=== PATIENT | female | born 1960 | race Caucasian/White ===

== ENCOUNTER 2023-12-19 15:44 | Outpatient (CLI) | payer OTHER, SELFPAY ==
--- NOTE | 2023-12-19 15:54 | XR_ITS ---
WS: [id number] Left hip, 2 views, 12/19/2023 Clinical Data: PAIN IN LEFT HIP Comparison: None. Findings: No fractures or dislocations are seen. The left hip shows no erosion, sclerosis, narrowing or fragmen tation of the left femoral head. The soft tissues are not remarkable. The adjacent pelvis is normal. Impression: Negative left hip. Tonnis classification: grade 0: normal radiographs
== END 2023-12-19 15:45 | disposition home or self-care (01) ==
LOC: RAD 15:51
PROVIDERS: Visit Provider Family Medicine
DX: M25.552 Pain in left hip (principal)
CPT/HCPCS: 73502

== ENCOUNTER 2024-01-04 09:43 | Outpatient (CLI) | payer OTHER, SELFPAY ==
--- NOTE | 2024-01-04 09:47 | MM_ITS ---
WS: [id number] SCREENING DIGITAL TOMOSYNTHESIS MAMMOGRAM WITH CAD HISTORY: SCREENING COMPARISON: 03/29/2022 and 07/12/2020 Bilateral CC and MLO with tomosynthesis views submitted. Synthetic mammography reviewed. Computer aid ed detection analyzed. Breast composition: There are scattered areas of fibroglandular density. No suspicious masses, microc alcifications or architectural distortion. IMPRESSION: MM/[place] [id number] BI-RADS: 1-Negative FOLLOW UP: 1 Year Follow-up
--- NOTE | 2024-01-04 09:51 | CT_ITS ---
WS: [id number] LDCT LUNG CANCER SCREENING TECHNIQUE: Noncontrast CT of the chest with coronal and sagittal reformatted images. CLINICAL INFORMATION: HX OF TOBACCO USE COMPARISON: None. DLP: 54.01 mGy.cm DIvol: Mean CTDIvol: 1.10 (mGy) All CT scans at [facility] use at least one of these dose optimization techniques: automat ed exposure control; mA and/or kV adjustment per patient size (includes targeted exams where dose is matched to clinical indication); or iterative reconstruction. FINDINGS: Lungs are well aerated. No suspicious pulmonary parenchymal opacities. Tiny noncalcified no dule LEFT upper lobe anteriorly Normal caliber thoracic aorta. No mediastinal or hilar lymphadenopathy. No axillary lymphadenopathy. Adrenal glands are normal. Small esophageal hiatal hernia. Marked enlargement LEFT thyroid with LEFT thyroid nodule measuring approximately 3.5 x 2.9 cm. Recommend further evaluation with ultrasound. Mi ld LEFT RIGHT mass effect on the trachea. No significant narrowing. Low-attenuation lesion in the RIGHT hepatic lobe indeterminate on this noncontrast examination. Recom mend further evaluation with contrast-enhanced CT abdomen pelvis. This measures approximately 1.4 cm and may represent hepatic cyst or hemangioma but indeterminant. IMPRESSION: Nonspecific low-attenuation lesion RIGHT hepatic lobe recommend further evaluation contra st-enhanced CT abdomen pelvis with liver protocol. Marked enlargement of the LEFT thyroid. Recommend further evaluation with thyroid ultrasound. CT/CT lung screening [id number] LUNG-RADS: 1S-Negative with Significant Findings FOLLOW UP: 12 Month: Continue annual screening with LDCT
== END 2024-01-04 09:44 | disposition home or self-care (01) ==
LOC: RAD 09:43
PROVIDERS: PCP Family Medicine; Visit Provider Family Medicine
DX: Z12.31 Encounter for screening mammogram for malignant neoplasm of breast (principal); R92.323 Mammographic fibroglandular density, bilateral breasts; Z12.2 Encounter for screening for malignant neoplasm of respiratory organs; Z87.891 Personal history of nicotine dependence
CPT/HCPCS: 71271; 77063; 77067

== ENCOUNTER 2024-01-22 12:58 | Outpatient (CLI) | payer OTHER, SELFPAY ==
--- NOTE | 2024-01-22 13:07 | US_ITS ---
WS: [id number] THYROID ULTRASOUND HISTORY: ENLARGED THYROID COMPARISON: None available. Right lobe: 1.1 cm x 1.1 cm x 4.0 cm (w x ap x l). Volume: 2.4 cm3. Normal sized thyroid. Colloid cyst mid gland 0.3 x 0.4 x 0.4 cm. Left lobe: 3.2 cm x 2.6 cm x 5.1 cm (w x ap x l). Volume: 20.6 cm3. Enlarged thyroid. There is a large dominant cystic and solid nodule with increased vascularity center ed in the mid gland. Mass measures 2.2 x 3.2 x 4.5 cm. As per history this mass is undergone biopsy t wice in the past. This is a well-circumscribed mass. No echogenic foci. Isthmus: 0.3 cm. IMPRESSION: 1. Large complex cystic mass LEFT thyroid measures 2.2 x 3.2 x 4.4 cm. As per the patient this mass is undergone biopsy twice in the past. No prior studies available for comparison to evaluate for inte rval change. 2. Small colloid cyst RIGHT thyroid.
--- NOTE | 2024-01-22 13:07 | CT_ITS ---
WS: [id number] CT ABDOMEN AND PELVIS WITH CONTRAST HISTORY: LESION OF LIVER TECHNIQUE: Imaging performed of the abdomen and pelvis with IV contrast. Multi phase imaging of the a bdomen. Coronal and sagittal reformats are submitted. All CT scans at [facility] use at least one of these dose optimization techniques: automated exposure control; mA and/or kV adjustment per p atient size (includes targeted exams where dose is matched to clinical indication); or iterative micaela nstruction. IV CONTRAST: Omnipaque 350; 100 mL IV. Oral contrast: No DLP: 1406.47 mGy.cm COMPARISON: CT lung screening 01/04/2024 Lower thorax: Lung bases are clear. Heart is normal size. No hiatal hernia. Liver/biliary system: Normal size liver. Mass described on the recent lung screening corresponds to a slightly lobulated low-attenuation mass in the RIGHT lobe measuring 14 x 11 mm. Hounsfield units are low. This is not a hemangioma. No portal vein thrombosis. Gallbladder: Mildly contracted. No adjacent inflammation. Pancreas: Normal size pancreas and pancreatic duct. No adjacent inflammation. Spleen: Normal size spleen. No mass or infarct. Adrenal glands: Normal. Right kidney: Normal. Left kidney: Normal. Aorta: Normal. Lymphadenopathy: None. Free fluid: None. GI tract: Stomach is distended with fluid. No small bowel obstruction. No colon obstruction. Normal a ppendix. Abdominal wall: Unremarkable abdominal wall. No hernia. Pelvis: Prior hysterectomy. No adenopathy or free fluid. Bones: Unremarkable. IMPRESSION: 1. Lobulated low-attenuation complex cystic mass without enhancement in the RIGHT lobe measures 14 x 11 mm. This is probably a mildly complex cyst. This may be several cyst together in a cluster. As th is is not completely cystic recommend follow-up ultrasound evaluation to confirm this is cystic mass. There is no hemangioma. 2. Otherwise negative.
[2024-01-22] MEDS: iohexol 350 mg/mL 500 mL Btl (per mL) IV (13:53)
== END 2024-01-22 12:59 | disposition home or self-care (01) ==
LOC: RAD 12:59
PROVIDERS: PCP Family Medicine; Visit Provider Nurse Practitioner Family
DX: K76.89 Other specified diseases of liver (principal); E04.9 Nontoxic goiter, unspecified
CPT/HCPCS: 74177; 76536; Q9967

== ENCOUNTER 2024-02-08 05:58 | Outpatient (CLI) | payer OTHER, SELFPAY ==
--- NOTE | 2024-02-08 06:30 | US_ITS ---
WS: [id number] RIGHT UPPER QUADRANT ULTRASOUND HISTORY: F/U CT EVAL FOR LIVER MASS COMPARISON: CT 01/22/2024 Liver: 14.9 cm in length. Liver is normal size. Mild coarse echotexture from hepatic steatosis. There is a small cystic mass measuring 1.3 x 1.2 x 1.0 cm in the RIGHT lobe of the liver. This is either a small cluster of cysts or cyst with septation. No nodularity or increased vascularity. No bile duct dilatation. Portal Vein: Normal hepatopetal flow with monophasic waveform. Gallbladder: Normally distended gallbladder with no stones or wall thickening. CBD: 0.4 cm Pancreas: Normal size and echogenicity. Right kidney: 10.7 cm in length. Normal size and echogenicity. No hydronephrosis or mass. Aorta and IVC: Unremarkable abdominal aorta and IVC. No ascites. US/US liver [id number] IMPRESSION: 1. Small cluster of cysts versus cyst with thin septation in the RIGHT lobe of the liver. Corresponds to the findings on the recent CT. No solid component or increased vascularity. 2. Mild hepatic steatosis. 3. Negative gallbladder.
== END 2024-02-08 05:59 | disposition home or self-care (01) ==
LOC: RAD 05:58
PROVIDERS: PCP Family Medicine; Visit Provider Family Medicine
DX: K76.89 Other specified diseases of liver (principal); K76.0 Fatty (change of) liver, not elsewhere classified
CPT/HCPCS: 76705